=== PATIENT | female | born 2000 | race Caucasian/White ===

== ENCOUNTER 2020-07-04 23:31 | Emergency (ER) | payer OTHER, SELFPAY ==
[2020-07-04 23:33] VITALS: BP 153/94; PULSE 98; RESP 16; TEMP 36.9; O2SAT 96; BMI 28.2
--- NOTE | 2020-07-04 23:55 | ED.VIS.GEN ---
History of Present Illness Chief Complaint: Wound Informant: Patient Narrative: Patient presents with an infected tattoo. She had a tattoo done 3 days ago. Yesterday she started noticed some redness and swelling and discomfort. She tried some Benadryl with no relief. This is her first tattoo. She is never had infections in the past. Current severity is mild. Worsened by nothing. Relieved by nothing. Presents here for antibiotic evaluation Past Medical History - Allergies and Home Meds Allergies/Adverse Reactions: Allergies azithromycin [From Zithromax] Allergy (Verified 07/04/20 23:32) Unknown Prior records reviewed: Yes Past Medical History: - - Denies Surgical History: - - Reviewed Smoking Status: Never smoker Alcohol: None Drugs: None Review of Systems General: Denies: Chills, Fever, Sweats Eyes: Denies: Visual changes - bilaterally, Diplopia ENT: Denies: Rhinorrhea, Sore throat Cardiovascular: Denies: Chest pain, Palpitations Respiratory: Denies: Dyspnea, Cough, Dyspnea on exertion Gastrointestinal: Denies: Abdominal pain, Nausea, Vomiting, Diarrhea, Melena, Hematochezia Genitourinary: Denies: Dysuria, Hematuria, Frequency Musculoskeletal: Reports: Extremity Pain. Denies: Back pain Skin: Reports: - - HPI. Denies: Rash, Wounds Neurological: Denies: Headache, Weakness, Numbness Physical Exam Vital Signs/Narrative: Vital Signs Temp Pulse Resp BP Pulse Ox 07/04/20 23:33 98.5 F 98 16 153/94 H 96 General: Well nourished, Well developed, No Acute Distress Head: Normocephalic, Atraumatic Eyes: Perrl, EOMI ENT: Moist mucous membranes, No rhinorrhea Neck: Supple, Nontender Cardiovascular: Regular rate, Regular rhythm, No murmurs Respiratory: No distress, CTA bilaterally, Chest nontender Abdomen: Soft, Nontender, Nondistended, Normal bowel sounds Back: Nontender, Normal Inspection Extremities: No edema. Negative for: Nontender Skin: - - Has a superficial cellulitis of her tattoo measuring 7 inches x 5 inches. There is no drainage or abscess. It is red and warm and tender. No evidence of necrotizing fasciitis. Negative for: Normal color, No rash Neurological: Alert, Oriented x3, Cranial nerves II-XII grossly intact, Normal Strength, Normal Sensation Psychological: Normal affect, Normal Mood Diagnostic/Tx/Re-eval - Medical Decision Making This is a early cellulitis of her tattoo. Patient elected to get an intramuscular injection of Ancef. Offered IV however she refuses at this time would like to try it with IM injection. Given oral antibiotics for home including Keflex Bactrim. To follow-up as an outpatient return if she worsens ED Disposition - Plan for ED Patient: Disposition: Home or Assisted Living Diagnosis: Cellulitis Instructions: Cellulitis Prescriptions: Smz/Tmp Ds [Bactrim Ds] 1 tablet PO BID #14 tab Transmission Status: Pending to [facility] Cephalexin [Keflex] 500 mg PO Q6 #28 capsule Transmission Status: Pending to [id number]
[2020-07-05] MEDS: Cefazolin 1 GM/5 ML Vial IM (00:21)
== END 2020-07-05 00:38 | disposition home or self-care (01) ==
PROVIDERS: Emergency Provider Emergency Medicine; PCP Pediatrics
DX: L03.90 Cellulitis, unspecified (principal)
CPT/HCPCS: 96372; 99282

== ENCOUNTER 2020-07-11 22:30 | Emergency (ER) | payer OTHER, SELFPAY ==
[2020-07-11 22:31] VITALS: BP 140/87; PULSE 87; RESP 18; TEMP 35.7; O2SAT 96; BMI 28.0
--- NOTE | 2020-07-11 22:49 | ED.DCSUM_ITS ---
History of Present Illness Chief Complaint: Cellulitis Informant: Patient Onset: Days Context: Gradual Onset Timing: Waxes and wanes Current Severity: Mild Maximum Severity: Mild Narrative: Patient presents secondary to possible infected tattoo. Patient recently had a tattoo placed on her right forearm. She was seen in the ER on the and was given prescription for 7 days of Bactrim and Keflex. Patient states he is also been putting Neosporin on the wound. Patient states she had some new erythema develop today and was concerned that she may have continued infection. No fever or chills. No drainage from the wound. Past Medical History - Allergies and Home Meds Allergies/Adverse Reactions: Allergies azithromycin [From Zithromax] Allergy (Verified 07/04/20 23:32) Unknown Primary Care Physician: Soni Ferrari MD [Primary Care Provider] - 3-5 Days Past Medical History: None Surgical History: - - Reviewed Smoking Status: Never smoker Review of Systems General: Denies: Chills, Fever Eyes: Denies: Visual changes - bilaterally ENT: Denies: Bilateral ear pain Cardiovascular: Denies: Chest pain Respiratory: Denies: Dyspnea, Cough Gastrointestinal: Denies: Abdominal pain, Vomiting, Diarrhea Genitourinary: Denies: Dysuria Musculoskeletal: Denies: Swelling Skin: Reports: Wounds Neurological: Denies: Headache Hematologic: Denies: Easy bruising, Easy bleeding Allergy: Denies: Uticaria Physical Exam Vital Signs/Narrative: Vital Signs Temp Pulse Resp BP Pulse Ox 07/11/20 22:31 96.2 F L 87 18 140/87 H 96 Inital Vital Signs reviewed: Yes General: Well nourished, Well developed Head: Normocephalic Neck: Supple Cardiovascular: Regular rate, Regular rhythm Respiratory: No distress, CTA bilaterally Abdomen: Soft, Nontender Extremities: - - Tattoo noted to the volar right forearm. Very minimal s uperficial erythema around parts of the tattoo. No drainage or deep wounds. Neurological: Alert, Oriented x3 Psychological: Normal affect Diagnostic/Tx/Re-eval - Medical Decision Making Patient is written for 3 additional days of antibiotics as typical treatment for cellulitis is 10 days. Wound is cleansed and bacitracin placed. I did advise her that sometimes Neosporin will cause rash and she will try triple antibiotic ointment or bacitracin only. ED Disposition - Plan for ED Patient: Disposition: Home or Assisted Living Diagnosis: Cellulitis Instructions: ED Cellulitis Prescriptions: Smz/Tmp Ds [Bactrim Ds] 1 tablet PO BID #6 tab Transmission Status: Received by [facility] Cephalexin [Keflex] 500 mg PO Q6 #12 capsule Transmission Status: Received by [facility] Referrals: Soni Ferrari MD [Primary Care Provider] - 3-5 Days
== END 2020-07-11 23:09 | disposition home or self-care (01) ==
LOC: ED 23:00
PROVIDERS: Emergency Provider Emergency Medicine; PCP Pediatrics
DX: L03.113 Cellulitis of right upper limb (principal)
CPT/HCPCS: 99282

== ENCOUNTER 2021-07-31 17:59 | Emergency (ER) | payer OTHER, SELFPAY ==
[2021-07-31 18:00] VITALS: BP 122/91; PULSE 88; RESP 14; TEMP 36.1; O2SAT 99; BMI 25.2
--- NOTE | 2021-07-31 18:11 | CT_ITS ---
We are attempting to reach an attending provider to discuss findings. An addendum with communication details will be sent when the communication is complete. EXAM: CT NECK WITH INTRAVENOUS CONTRAST CLINICAL INDICATION: right tonsillar swelling/ abscess TECHNIQUE: Helically acquired images were obtained of the neck with intravenous contrast. This CT exam was performed using one or more of the following dose reduction techniques: automated exposure control, adjustment of the mA and/or kV according to patient size, and/or use of iterative reconstruction technique. This report was created using [employer] technology. CONTRAST: IV 100mL Isovue-300 RADIATION DOSE: CTDIvol = 12.96 mGy, DLP = 385.38 mGy-cm COMPARISON: None. FINDINGS: NASOPHARYNX: Unremarkable. SUPRAHYOID NECK: Right peritonsillar abscess measures 19 mm and there is a left peritonsillar abscess measuring 4 mm. INFRAHYOID NECK: Unremarkable. The larynx, hypopharynx and supraglottis are unremarkable. SUBMANDIBULAR/PAROTID GLANDS: Unremarkable. Glands are normal in size. THYROID: Unremarkable. No enlarged or calcified nodules. BONES/JOINTS: No acute fracture. SOFT TISSUES: Unremarkable. VASCULATURE: No acute findings. LYMPH NODES: Unremarkable. No lymphadenopathy. LUNG APICES: Unremarkable as visualized. CT/Soft Tissue Neck WITH Contrast IMPRESSION: Right peritonsillar abscess measures 19 mm and there is a left peritonsillar abscess measuring 4 mm. Electronically Signed: Rusty Agrawal MD at 18:54 EDT ,
--- NOTE | 2021-07-31 18:12 | EX.ED.DYSGE1 ---
HPI History of Present Illness Chief Complaint: Sore Throat Detail of Chief Complaint: Sore throat x2 weeks Informant: patient Onset/Context/Timing Current Severity: 11/21 Narrative Narrative: Patient presents to the emergency department for sore throat x2 weeks. Patient noticed tonsillar swelling 1 week ago. More severe pain started yesterday. She denies any fevers. She has minimal cough. No sick contacts known. Prior similar symptoms: No PFSH PFSH Medical History no medical history Home Medications cephalexin 500 mg PO Q6 #12 capsule 07/11/20 [Rx Last Taken Unknown] spironolactone 100 mg PO DAILY 07/11/20 [History Last Taken Unknown] sulfamethoxazole-trimethoprim 1 tablet PO BID #6 tab 07/11/20 [Rx Last Taken Unknown] Allergy/AdvReac Type Severity Reaction Status Date / Time azithromycin [From Zithromax] Allergy Unknown Verified 07/31/21 18:00 Surgical History no surgical history Social History Smoking Status: Never smoker ROS ROS ED Constitutional Constitutional ED: Reports systems reviewed and no addt'l complaints, except as documented; Denies body ache(s), change in weight or chills Eyes Eyes: Denies acute decrease in peripheral vision, change in vision, double vision or loss of vision ENT ENT ED: Reports none and sore throat; Denies ear pain, lip swelling, loss taste/smell, neck pain or otalgia Cardiovascular Cardiovascular: Reports none; Denies abdominal pain, chest pain with activity, leg edema, lightheadedness, palpitations, rapid heart rate or syncope Respiratory/Chest Respiratory/Chest: Reports none; Denies change in mental status, dry cough, dyspnea, hemoptysis, shortness of breath at rest or shortness of breath with exertion Gastrointestinal Gastrointestinal: Reports none; Denies abdominal pain, change in stool character, diarrhea, hematemesis, hematochezia, melena, rectal bleeding or vomiting Genitourinary Genitourinary ED: Reports none; Denies abdominal discomfort, anuria, dysuria, genital pain or polyuria Musculoskeletal Musculoskeletal: Reports none; Denies arthralgias, back pain, difficulty walking, extremity pain, muscle weakness or myalgias Integumentary Reports none; Denies abscess or rash Neurologic Neurologic: Reports none; Denies abnormal gait, confusion, focal weakness, frequent falls, headache(s), loss of vision, numbness, paresthesias, radicular pain, vertigo or weakness Psychiatric Psychiatric: Reports systems reviewed and no addt'l complaints, except as documented and none; Denies behavioral changes, confusion, difficulty concentrating, hallucinations, suicidal ideation, tactile hallucinations or visual hallucinations Endocrine Endocrinology: Denies none, cold intolerance, excessive sweating, fatigue or heat intolerance Hematologic/Lymphatic Hematologic/Lymphatic: Reports none; Denies anemia, easy bleeding or easy bruising Allergic/Immunologic Allergic/Immunologic ED: Denies as per HPI, none, lip swelling, mouth swelling, throat swelling, tongue swelling or hives EXAM Physical Exam Const Vital Signs: 07/31/21 18:00 Temperature 97.0 F L Temperature Source Temporal Pulse Rate 88 Respiratory Rate 14 Blood Pressure 122/91 H Blood Pressure Mean 101 Pulse Ox 99 Oxygen Delivery Method Room Air Positive well nourished and well developed General Appearance ED: well developed and NAD HEENT Reports TM's clear and moist mucous membranes HEENT Narrative: Patient has an enlarged right tonsil with exudate. Tonsil measures +4 and impinges upon the uvula but there is no significant uvular deviation noted. Do not appreciate an obvious peritonsillar abscess. No trismus on exam. She does have some anterior cervical lymphadenopathy noted. normocephalic and atraumatic; Negative for trauma or tenderness Tympanic Membrane ED: Yes TM's clear Eyes PERRL and EOMs intact bilaterally General Eye ED: Negative for pale conjunctiva or scleral icterus Neck no lymphadenopathy, supple and no JVD General: Negative for tenderness Chest Wall inspection of chest normal and palpation of chest normal Chest: Negative for tenderness Resp normal respiratory effort and clear to auscultation bilaterally Effort and Inspection: Negative for respiratory distress or pain with movement Auscultation: Negative for rhonchi, wheezes or diminished lung sounds Cardio regular rate, regular rhythm, S1 normal heart sound, S2 normal heart sound and no murmurs Peripheral Pulses: pulses 2+ throughout GI normal to inspection, nondistended, normoactive bowel sounds, soft to palpation, non-tender, non-distended and no masses Back/Spine no CVA tenderness and no thoracic nor lumbar tenderness Extremity normal to inspection General Extremety ED: Negative for edema General Extremity: Negative for edema Neuro oriented x3, CN's II-XII intact bilaterally, no sensory deficits noted and gait normal Sensorium / Orientation: awake, alert, oriented to person, oriented to place and oriented to time Motor Exam: strength 5/5 throughout and strength abnormal Psych mental status grossly normal Skin no rashes or lesions noted and no wounds MDM MDM MDM Narrative Medical decision making narrative: AbsentIV line established on arrival. Patient was given Decadron as well as Toradol IV and she had good pain relief with that. Again for an elevated white count of 15.4. Chemistries unremarkable. Nelson screen was negative. CT scan of the neck showed bilateral peritonsillar abscesses 1 on the right measuring 19 mm and the 1 on the left 4 mm. We do not have ENT coverage at [place]. Patient would like to be transferred to [place]. I discussed case with [facility] hospitalist Dr. Perry who accepted transfer of patient and they will consult ENT. Lab Data Attestation: I reviewed the patient's lab results. Labs: Laboratory Results - last 24 hr 07/31/21 07/31/21 07/31/21 18:20 18:20 18:20 WBC 15.4 H RBC 4.72 Hgb 13.7 Hct 40.9 MCV 86.7 MCH 29.0 MCHC 33.5 RDW Std Deviation 39.8 RDW Coeff of Antonio 12.6 Plt Count 312 MPV 9.8 Immature Gran % (Auto) 1.100 H Neut % (Auto) 76.3 H Lymph % (Auto) 12.9 L Nelson % (Auto) 8.3 Eos % (Auto) 0.8 Baso % (Auto) 0.6 Absolute Neuts (auto) 11.7 H Absolute Lymphs (auto) 1.99 Nucleated RBC % 0 Sodium 138 Potassium 3.7 Chloride 105 Carbon Dioxide 27.0 Anion Gap 6 BUN 5 L Creatinine 0.62 Estim Creat Clear Calc 134.37 Est GFR (MDRD) Af Amer 157 Est GFR (MDRD) Non-Af 129 BUN/Creatinine Ratio 8.1 L Glucose 84 Calcium 9.2 Monoscreen Negative Radiography Diagnostic Testing: Clinical Impression(s) from Imaging Studies Soft Tissue Neck CT 07/31/21 18:11 IMPRESSION: Right peritonsillar abscess measures 19 mm and there is a left peritonsillar abscess measuring 4 mm. Electronically Signed: Rusty Agrawal MD at 18:54 EDT , ADDENDUM: 07/31/21 1914 IMPRESSION: Right peritonsillar abscess measures 19 mm and there is a left peritonsillar abscess measuring 4 mm. N.B. : The above Results were Read Back by Rusty Agrawal MD to Joseph Fernandez MD, and understanding confirmed on 07/31/2021 19:07:17 (ET). Electronically Signed: Rusty Agrawal MD at 18:54 EDT Reading Location ID and State: [facility] / [place] , Service support , Discharge Plan Triage Chief Complaint: Sore Throat ED Provider: Joseph Fernandez Dx/Rx/DC Orders Clinical Impression: Abscess, peritonsillar, Leukocytosis Prescriptions: No Action spironolactone 100 MG tablet 100 mg PO DAILY RF: 0 sulfamethoxazole-trimethoprim 1 TABLET tablet 1 tablet PO BID Qty: 6 RF: 0 cephalexin 500 MG capsule 500 mg PO Q6 Qty: 12 RF: 0 Primary Care Provider: Soni Ferrari Referrals: Soni Ferrari MD [Primary Care Provider] - Disposition Disposition: Transfer to Another Type HCF
[2021-07-31] MEDS: dexAMETHasone 10 MG/ML Vial IV (18:30)
[2021-07-31] MEDS: 0.9% Normal Saline 1,000 ML 150 ML IV (18:30)
[2021-07-31 18:31] LABS: Absolute Lymphocyte Count 1.99 X10^3/uL (0.83-4.51); Absolute Neutrophil Count 11.7 X10^3/uL (2.0-7.7); Basophil# 0.09 X10^3/uL; Basophil% 0.6 % (0-1); Eosinophil# 0.12 X10^3/uL; Eosinophils% 0.8 % (0-5); Hematocrit 40.9 % (37-47); Hemoglobin 13.7 g/dL (12.0-15.0); Lymphocyte # 1.99 X10^3/ul (0.83-4.51); Lymphocyte % 12.9 % (19-41); Mean Corp Hgb Conc 33.5 g/dL (32-36); Mean Corpuscular Volume 86.7 fL (81-99); Mean Platelet Vol. 9.8 fl (6.2-12.0); Monocyte# 1.27 X10^3/uL; Monocyte% 8.3 % (0-10); NRBC Flagged by Analyzer 0 % (0-5); Neutrophil # 11.74 X10^3/uL (2.7-7.7); Neutrophil % 76.3 % (47-70); Platelet Count 312 K/mm3 (150-450); RBC Distribution Width CV 12.6 % (11.6-14.6); RBC Distribution Width SD 39.8 fl (35.1-43.9); Red Blood Count 4.72 M/mm3 (4.2-5.4); White Blood Count 15.4 K/mm3 (4.4-11.0)
[2021-07-31] MEDS: Ketorolac 30 MG/ML Syringe IV (18:31)
[2021-07-31 18:51] LABS: Anion Gap 6 (5-15); BUN 5 mg/dL (7-18); BUN/Creat Ratio 8.1 RATIO (10-20); Calcium,Total 9.2 mg/dL (8.5-10.1); Chloride 105 mmol/L (98-107); Creatinine, Serum 0.62 mg/dL (0.55-1.02); EST Glomerular Filtration Rate 129 mL/min (>60); Est Glom Filt Rate - Afr Amer 157 mL/min (>60); Estimated Creatinine Clearance 134.37 ml/min; Glucose 84 mg/dL (74-106); Internal QC Validated? YES +Cl - CLEAR BKGD; Monotest Negative (Negative); Potassium 3.7 mmol/L (3.5-5.1); Sodium Level 138 mmol/L (136-145)
--- NOTE | 2021-07-31 19:56 | ED.RN ---
PHARMACY CALLED FOR [place], STATE THEY WILL SEND
[2021-07-31] MEDS: Clindamycin 900 MG/50 ML BAG 75 MG IV (20:09)
[2021-07-31 20:41] VITALS: BP 116/74; PULSE 78; RESP 16; O2SAT 98
== END 2021-07-31 20:59 | disposition other institution (70) ==
PROVIDERS: Emergency Provider Emergency Medicine; PCP Pediatrics; Visit Provider Emergency Medicine
DX: J36 Peritonsillar abscess (principal)
CPT/HCPCS: 70491; 80048; 85025; 86308; 87880; 96361; 96365; 96375; 99285; J7030; Q9967